=== PATIENT | male | born 1950 | race Caucasian/White ===

== ENCOUNTER 2017-10-19 12:16 | Day surgery (SDC) | payer OTHER ==
[~2017-10-19] VITALS: Ht 172.7 cm; Wt 79.3 kg
[~2017-10-19 12:16] MED LIST: OMEPRAZOLE
[2017-10-19 12:37] VITALS: Ht 172.7 cm; Wt 79.3 kg
[2017-10-19 14:34] VITALS: BP 124/70; PULSE 62; RESP 18
[2017-10-19] MEDS ORDERED: MIDAZOLAM 1 MG/ML 2 ML INJ ONE (14:58)
[2017-10-19] MEDS ORDERED: FENTAnyl 50 MCG/ML VIAL ONE (14:58)
[2017-10-19] MEDS ORDERED: PROPOFOL 20 ML ONE (14:58)
--- NOTE | 2017-10-19 15:20 | OPPN ---
Date/Time of Note Date/Time of Note DATE: 10/19/17 TIME: 15:17 Proc Note GI Procedure Date 10/19/17 Indication: other (Abdominal pain/dyspepsia) Pre-procedure Diagnosis Abdominal pain/dyspepsia Post-procedure Diagnosis Impression: Mild distal esophagitis. No evidence of esophageal varices. Moderate gastritis. Rule out H. pylori infection. Biopsies obtained Plan: Continue present regimen Review pathology Follow-up as previously scheduled . Procedure Performed: Endoscopy (With biopsies) Surgeon BAMBI MORTON MD See signature line Nurse none Anesthesia Type: MAC Anesthesiologist: NICHOLE YE MD Tourniquet Time none EBL none Transfusion required none Biopsy 1: Gastric body and antrum Grafts/Implants none Tubes/Drains none Complication(s) none Disposition: home Procedure Description After informed consent, with the patient/relatives understanding the procedure, its indications, potential risks and complications, including but not limited to : allergic reaction, bleeding, perforation or infection, and after all pertinent questions were answered to the patients satisfaction, the patient/ relatives signed witnessed informed consent. Following this, premedication was administered slowly IV push under careful cardiovascular and respiratory monitoring with pulse oximetry, automatic blood pressure, and director technical. Once the sedative effect was achieved the patient was place in the left lateral decubitus, the panendoscope was introduced and advanced under visual control. Careful examination of the upper gastrointestinal tract, both on insertion as well as withdrawal of the instrument disclosing the following findings: ESOPHAGUS: the mucosa of the entire esophagus was carefully examined and showed the following findings: There is mild erythema edema the mucosa at the esophagogastric junction. Otherwise the mucosa appears within normal limits. There is no evidence of varices, neoplasm, or stricture. No Hiatal Hernia identified. STOMACH: Upon entrance to the stomach air was insufflated, the gastric dent distended normally. The mucosa of the fundus, body and antrum of the stomach was carefully examined both head-on and on retroflexion, and showed the following findings: There is moderate erythema and edema because of the body and antrum of the stomach. Biopsies were obtained to rule out H. pylori infection. Otherwise the mucosa appears within normal limits with no abnormalities. There is no evidence of ulcers or neoplasm. PYLORUS: The pylorus was carefully examined and showed the following findings: the pylorus appears patent and within normal limits, with no evidence of gastric outlet obstruction. DUODENUM: The duodenal mucosa was carefully examined in the duodenal bulb as well as the second portion of the duodenum and showed the following findings: the mucosa appears unremarkable with no evidence of duodenitis, ulcer or neoplasm. Copies To: CC: BAMBI MORTON MD, MORDO MD Oct 19, 2017 15:20
[2017-10-19 15:55] VITALS: BP 121/79; PULSE 56; RESP 18
== END 2017-10-19 16:34 | disposition home or self-care (01) ==
LOC: GIL 12:16
PROVIDERS: ATTEND Internal Medicine Gastroenterology
DX: K21.9 Gastro-esophageal reflux disease without esophagitis (principal); K20.9 Esophagitis, unspecified; I10 Essential (primary) hypertension
CPT/HCPCS: 43239; J2250; J3010; 88305; 88312